=== PATIENT | male | born 1955 | race Caucasian/White ===

== ENCOUNTER 2020-05-05 21:16 | Observation (INO) ==
[2020-05-05] MEDS ORDERED: methylPREDNISolone 125 MG/2 ML VIAL IVP ONE (21:27)
[2020-05-05] MEDS ORDERED: Azithromycin 500 MG in D5% in Water 250 ML IVPB ONE (21:27)
[2020-05-05] MEDS ORDERED: 0.9 % Sodium Chloride 1,000 ML IVC SCH (21:30)
[2020-05-05 22:11] LABS: Basophils # 0.1 K/mcL (0.0-0.2); Basophils % 0.4 %; Eosinophils # 0.2 K/mcL (0.0-0.6); Eosinophils % 1.2 %; Hematocrit 49.2 % (37.5-50.1); Hemoglobin 16.6 g/dL (12.9-16.9); Immature Granulocytes % 0.7 % (0-4); Lymphocytes # 1.4 K/mcL (0.6-4.6); Lymphocytes % 9.9 %; Mean Corpuscular HGB Conc 33.7 g/dL (31.6-35.5); Mean Corpuscular Hemoglobin 30.2 pg (28.0-33.3); Mean Corpuscular Volume 89.6 fL (83.0-100.0); Mean Platelet Volume 10.8 fL (9.4-12.4); Monocytes % 7.1 %; Platelet Count 201 K/mcL (140-400); Red Blood Count 5.49 M/mcL (4.19-5.50); Red Cell Distribution Width 12.8 % (11.5-14.5); Segmented Neutrophils % 80.7 %; White Blood Count 13.6 K/mcL (4.3-11.1)
[2020-05-05 22:24] LABS: INR 1.1; Prothrombin Time 12.4 Seconds (9.4-12.1)
[2020-05-05 22:29] LABS: Magnesium 1.9 mg/dL (1.6-2.6)
[2020-05-05 22:30] LABS: Alanine Aminotransferase 40 Units/L (7-52); Albumin 4.3 g/dL (3.5-5.7); Albumin/Globulin Ratio 1.8 (1.1-2.2); Alkaline Phosphatase 40 Units/L (34-104); Aspartate Amino Transferase 24 Units/L (13-39); BUN/Creatinine Ratio 14 (6-26); Bilirubin,Total 0.4 mg/dL (0.3-1.0); Blood Urea Nitrogen 12 mg/dL (8-23); Calcium 8.4 mg/dL (8.6-10.3); Carbon Dioxide 29 mEq/L (23-29); Chloride 100 mEq/L (98-107); Globulin 2.4 g/dL (2.4-3.5); Glucose 225 mg/dL (70-105); Osmolality,Calculated 289 (280-300); Potassium 3.9 mEq/L (3.5-5.1); Sodium 136 mEq/L (136-145); Total Protein 6.7 g/dL (6.4-8.9); Troponin I < 0.03 ng/mL (< 0.04); eGFR For African Americans > 60 (> 60); eGFR For Non-African Americans > 60 (> 60)
[2020-05-05] MEDS ORDERED: Isovue-370 500 ML BOTTLE IVP ONE (22:36)
[2020-05-06] MEDS ORDERED: Ondansetron ODT 4 MG TAB.RAPDIS SL PRN (02:08)
[2020-05-06] MEDS ORDERED: 0.9 % Sodium Chloride 1,000 ML IVC SCH (02:08)
[2020-05-06] MEDS ORDERED: Naloxone 0.4 MG/ML INJ IVP PRN (02:08)
[2020-05-06] MEDS ORDERED: FLU Vac QV 20-21 (6Month+)/PF 0.5 ML SYRINGE IM ONE (02:24)
[2020-05-06] MEDS: Ipratropium/Albuterol Neb 3 ML IH SCH ×2 (03:39→09:44)
[2020-05-06] MEDS ORDERED: MethylPREDNISolone 40 MG/ML VIAL IVP SCH (06:00)
[2020-05-06 06:15] LABS: Basophils % 0.2 %; Hematocrit 46.9 % (37.5-50.1); Hemoglobin 15.9 g/dL (12.9-16.9); Immature Granulocytes % 0.8 % (0-4); Lymphocytes # 0.9 K/mcL (0.6-4.6); Lymphocytes % 7.5 %; Mean Corpuscular HGB Conc 33.9 g/dL (31.6-35.5); Mean Corpuscular Hemoglobin 30.5 pg (28.0-33.3); Mean Platelet Volume 11.2 fL (9.4-12.4); Monocytes # 0.2 K/mcL (0.0-1.3); Monocytes % 1.3 %; Neutrophils # 11.1 K/mcL (1.6-8.9); Platelet Count 200 K/mcL (140-400); Red Blood Count 5.21 M/mcL (4.19-5.50); Segmented Neutrophils % 90.2 %; White Blood Count 12.3 K/mcL (4.3-11.1)
[2020-05-06 06:32] LABS: BUN/Creatinine Ratio 13 (6-26); Blood Urea Nitrogen 10 mg/dL (8-23); Calcium 8.7 mg/dL (8.6-10.3); Carbon Dioxide 28 mEq/L (23-29); Chloride 104 mEq/L (98-107); Glucose 159 mg/dL (70-105); Osmolality,Calculated 290 (280-300); Potassium 4.7 mEq/L (3.5-5.1); Sodium 139 mEq/L (136-145); eGFR For African Americans > 60 (> 60); eGFR For Non-African Americans > 60 (> 60)
[2020-05-06] MEDS: levoFLOXacin 500 MG/100 ML 500 MG/100 ML BAG IVPB SCH (08:32)
[2020-05-06] MEDS ORDERED: cefTRIAXone 1,000 MG in Water for inj. (sterile) 10 ML IVP SCH (09:00)
[2020-05-06] MEDS ORDERED: GuaiFENesin/Dextromethorphan TABLET PO PRN (09:17)
[2020-05-06] MEDS ORDERED: Ipratropium/Albuterol Neb 3 ML IH PRN (11:05)
[2020-05-06] MEDS ORDERED: Saline Nasal Spray 44 ML BOTTLE NS PRN (15:33)
[2020-05-06] MEDS: MethylPREDNISolone 40 MG/ML VIAL IVP SCH (16:10)
[2020-05-06] MEDS: Glycopyrrolate/Formoterol Fum [Bevespi Aerosphere Inhaler] IH SCH (22:31)
[2020-05-07] MEDS: MethylPREDNISolone 40 MG/ML VIAL IVP SCH ×2 (00:06→08:07)
[2020-05-07 06:24] LABS: Basophils % 0.1 %; Hematocrit 45.1 % (37.5-50.1); Hemoglobin 15.1 g/dL (12.9-16.9); Immature Granulocytes % 0.9 % (0-4); Lymphocytes # 1.1 K/mcL (0.6-4.6); Lymphocytes % 7.3 %; Mean Corpuscular HGB Conc 33.5 g/dL (31.6-35.5); Mean Corpuscular Hemoglobin 30.3 pg (28.0-33.3); Mean Corpuscular Volume 90.6 fL (83.0-100.0); Mean Platelet Volume 11.4 fL (9.4-12.4); Monocytes # 0.8 K/mcL (0.0-1.3); Monocytes % 5.1 %; Platelet Count 195 K/mcL (140-400); Red Blood Count 4.98 M/mcL (4.19-5.50); Red Cell Distribution Width 13.2 % (11.5-14.5); Segmented Neutrophils % 86.6 %
[2020-05-07 06:45] LABS: BUN/Creatinine Ratio 17 (6-26); Blood Urea Nitrogen 12 mg/dL (8-23); Calcium 8.8 mg/dL (8.6-10.3); Chloride 106 mEq/L (98-107); Potassium 4.5 mEq/L (3.5-5.1); Sodium 142 mEq/L (136-145); eGFR For African Americans > 60 (> 60); eGFR For Non-African Americans > 60 (> 60)
[2020-05-07 06:47] LABS: Carbon Dioxide 27 mEq/L (23-29); Glucose 141 mg/dL (70-105); Osmolality,Calculated 296 (280-300)
[2020-05-07 07:06] VITALS: BP 128/75
[2020-05-07] MEDS: levoFLOXacin 500 MG/100 ML 500 MG/100 ML BAG IVPB SCH (08:07)
[2020-05-07] MEDS: Glycopyrrolate/Formoterol Fum [Bevespi Aerosphere Inhaler] IH SCH (09:24)
== END 2020-05-07 13:18 | disposition home or self-care (01) ==
LOC: EMEROOPIK 21:16 → INPPIK 21:16
PROVIDERS: ADMIT Family Medicine; ATTEND Family Medicine